=== PATIENT | female | born 1990 | race Caucasian/White ===

== ENCOUNTER 2016-10-04 13:01 | Emergency (ER) | payer OTHER ==
[2016-10-04 13:09] VITALS: BP 121/81
--- NOTE | 2016-10-04 13:39 | ED Physician Documentation ---
PD HPI CHEST PAIN - Stated complaint Stated Complaint: CHEST PX/L ARM PX - Chief complaint Chief Complaint: Cardiac - History obtained from History obtained from: Patient, Family - History of Present Illness Timing - onset: How many weeks ago (2) Timing - onset during: Rest Timing - duration: Minutes (5) Timing - details: Abrupt onset, Now resolved, Waxing and waning Quality: Sharp, Pain Location: Left chest, Left neck Radiation: Neck, Left upper extremity Associated symptoms: No: Shortness of air, Diaphoresis, Nausea, Vomiting, Feeling faint / dizzy, General Weakness, Palpitations, Cough Similar symptoms before: Has not had sx before Recently seen: Not recently seen - Additional information Additional information: 26-year-old female has been traveling in a van with her for the past 5 months. She has developed some pain in her left upper premolar about 2 weeks ago and associated with this she has also developed some pain in her neck and jaw shoulder and arm and hand periodically and episodes me lasting maybe 5 minutes. She denies any exertionally related symptoms over the past 2 weeks. She does not have any drainage from the area of the tooth she has not had a fever she has had a root canal done on this tooth after a traumatic injury. She is having sensitivity to the tooth now. Review of Systems Constitutional: denies: Fever, Chills, Myalgias Eyes: denies: Decreased vision Ears: denies: Ear pain Nose: denies: Rhinorrhea / runny nose, Congestion Throat: reports: Dental pain / toothache Cardiac: reports: Chest pain / pressure. denies: Palpitations, Pedal edema, Calf pain Respiratory: denies: Dyspnea, Cough GI: denies: Abdominal Pain, Nausea, Vomiting : denies: Dysuria, Frequency Skin: denies: Rash Musculoskeletal: reports: Neck pain, Extremity pain. denies: Back pain Neurologic: reports: Numbness. denies: Generalized weakness, Focal weakness PD PAST MEDICAL HISTORY - Present Medications Home Medications: Ambulatory Orders Medication Instructions Recorded Confirmed Clindamycin [Cleocin] 300 mg PO Q6H #28 capsule 10/04/16 - Allergies Allergies/Adverse Reactions: Allergies Allergy/AdvReac Type Severity Reaction Status Date / Time amoxicillin AdvReac Edema Verified 10/04/16 13:09 PD ED PE NORMAL - Vitals Vital signs reviewed: Yes (Normal) - General General: Alert and oriented X 3, No acute distress, Well developed/nourished - HEENT HEENT: Atraumatic, PERRL, EOMI, Other (There is cerumen occluding both TMs. What is visible appears clear. There are 2 teeth on the left maxilla that are crowns. The premolar appears to be the tooth that is bothering the patient the most. There is no drainage from the gum line and no specific swelling the area is tender over the gumb on the lateral aspect.) - Neck Neck: Supple, no meningeal sign, No bony TTP, No adenopathy - Cardiac Cardiac: RRR, No murmur - Respiratory Respiratory: No respiratory distress, Clear bilaterally - Abdomen Abdomen: Soft, Non tender - Back Back: No CVA TTP, No spinal TTP - Derm Derm: Normal color, No rash - Extremities Extremities: No deformity, No edema - Neuro Neuro: Alert and oriented X 3, No motor deficit, No sensory deficit, Normal speech - Psych Psych: Normal mood, Normal affect Results - Vitals Vitals: Vital Signs - 24 hr 10/04/16 13:05 Temperature 36.6 C Heart Rate 92 Respiratory 16 Rate Blood Pressure 121/81 H O2 Saturation 100 Oxygen O2 Source Room air - EKG (time done) 1313 Rate: Rate (enter#) (76) Rhythm: NSR Ischemia: Normal ST segments Compare to prior EKG: Old EKG unavailable Computer interpretation: Agree with computer PD MEDICAL DECISION MAKING - ED course Complexity details: reviewed results, re-evaluated patient, considered differential, d/w patient, d/w family ED course: 26-year-old female previously healthy has some pain in her left upper tooth and she has had episodic pains in her chest and arm. I suspect these are referred pains and her electrocardiogram today is entirely normal. She has no other components of her history suspicious for angina and we have discussed treatment of the tooth. She is allergic to amoxicillin and we have discussed the use of clindamycin. Departure - Departure Disposition: 01 Home, Self Care Clinical Impression: Dental abscess, Atypical chest pain Condition: Stable Instructions: ED Chest Pain Atypical Unkn Cause, ED Abscess Dental Follow-Up: [facility] [Provider Group] Prescriptions: Clindamycin [Cleocin] 300 mg PO Q6H #28 capsule
== END 2016-10-04 13:49 | disposition home or self-care (01) ==
LOC: ED 13:01
DX: K04.7 Periapical abscess without sinus (principal); R07.89 Other chest pain
CPT/HCPCS: 93005; 99283